=== PATIENT | female | born 1945 | race Caucasian/White ===

== ENCOUNTER 2022-03-30 15:12 | Outpatient (RCR) | payer MEDICARE, OTHER, SELFPAY | END 2022-03-31 23:59 | disposition home or self-care (01) | LOC: HO.PHPA 15:12 | PROVIDERS: Visit Provider Psychiatry & Neurology Psychiatry | DX: F41.9 Anxiety disorder, unspecified (principal) ==

== ENCOUNTER 2022-03-31 11:40 | Inpatient (IN) | payer MEDICARE, OTHER, SELFPAY ==
--- NOTE | 2022-03-31 12:05 | ED.PSYCH ---
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 Detect) Urine Fentanyl Screen Not Detected (Not Detect) Ur Barbiturates Screen Not Detected (Not Detect) Ur Phencyclidine Scrn Not Detected (Not Detect) Ur Amphetamines Screen Not Detected (Not Detect) U Benzodiazepines Scrn Not Detected (Not Detect) Urine Cocaine Screen Not Detected (Not Detect) U Marijuana (THC) Screen Not Detected (Not Detect) Ethyl Alcohol mg/dL Influenza Type A (PCR) NEGATIVE (Negative) Influenza Type B (PCR) NEGATIVE (Negative) RSV RNA Qual (PCR) NEGATIVE (Negative) SARS-CoV-2 RNA (RT-PCR) NEGATIVE (Negative) 03/31/22 03/31/22 03/31/22 Range/Units 13:17 13:17 13:17 WBC 5.3 (4.8-10.8) X10*3/uL RBC 4.33 (4.20-5.50) X10*6/uL Hgb 12.7 (12.0-16.0) g/dl Hct 38.6 (37.0-47.0) % MCV 89.1 (80.0-98.0) fL MCH 29.3 (27.0-33.0) pg MCHC 32.9 (31.0-35.0) g/dl RDW 12.9 (11.0-16.0) % Plt Count 157 L (160-400) X10*3/uL MPV 9.8 (9.4-12.3) fL Immature Gran % (Auto) 0.2 (0.0-0.4) % Neut % (Auto) 77.2 H (45-73) % Lymph % (Auto) 14.4 L (20-40) % [place] % (Auto) 5.9 (2-11) % Eos % (Auto) 1.7 (0-4) % Baso % (Auto) 0.6 (0-2) % Lymph # (Auto) 0.8 L (1.2-4.9) X10*3/uL [place] # (Auto) 0.3 (0.1-1.2) X10*3/uL Eos # (Auto) 0.1 (0.0-0.4) X10*3/uL Baso # (Auto) 0.0 (0.0-0.2) X10*3/uL Abs Immat Gran (auto) 0.01 (0.00-0.03) X10*3/uL Absolute Neuts (auto) 4.1 (2.0-8.3) x10*3/uL Absolute Nucleated RBC 0.000 (0.0-0.012) X10*3/uL Nucleated RBC % (auto) 0.0 (0.0-0.2) /100WBC Sodium 140 (135-145) mmol/L Potassium 4.6 (3.3-5.1) mmol/L Chloride 104 (96-108) mmol/L Carbon Dioxide 30 H (22-29) mmol/L Anion Gap 11 L (12-20) BUN 17 H (9-16) mg/dL Creatinine 0.80 (0.5-1.4) mg/dL Estim Creat Clear Calc 54.5 Estimated GFR > 60 Random Glucose 101 (60-115) mg/dL Calcium 9.3 (8.4-10.2) mg/dL Magnesium 2.1 (1.6-2.6) mg/dL Total Bilirubin 0.6 (0.0-1.0) mg/dL AST 40 H (5-31) U/L ALT 18 (0-31) U/L Alkaline Phosphatase 70 (39-117) U/L Troponin I High Sens (<3.5-17.0) ng/L Total Protein 6.6 (6.5-8.0) g/dL Albumin 4.2 (3.5-5.0) g/dL Urine Color Urine Appearance Urine pH (5.0-9.0) Ur Specific [place] (1.005-1.025) Urine Protein (Neg-Trace) mg/dL Urine Glucose (UA) (Negative) mg/dL Urine Ketones (Negative) mg/dL Urine Blood (Negative) Urine Nitrite (Negative) Ur Leukocyte Esterase (Negative) Urine Opiates Screen (Not Detect) Urine Fentanyl Screen (Not Detect) Ur Barbiturates Screen (Not Detect) Ur Phencyclidine Scrn (Not Detect) Ur Amphetamines Screen (Not Detect) U Benzodiazepines Scrn (Not Detect) Urine Cocaine Screen (Not Detect) U Marijuana (THC) Screen (Not Detect) Ethyl Alcohol < 10 mg/dL Influenza Type A (PCR) (Negative) Influenza Type B (PCR) (Negative) RSV RNA Qual (PCR) (Negative) SARS-CoV-2 RNA (RT-PCR) (Negative) 03/31/22 03/31/22 Range/Units 13:17 18:02 WBC (4.8-10.8) X10*3/uL RBC (4.20-5.50) X10*6/uL Hgb (12.0-16.0) g/dl Hct (37.0-47.0) % MCV (80.0-98.0) fL MCH (27.0-33.0) pg MCHC (31.0-35.0) g/dl RDW (11.0-16.0) % Plt Count (160-400) X10*3/uL MPV (9.4-12.3) fL Immature Gran % (Auto) (0.0-0.4) % Neut % (Auto) (45-73) % Lymph % (Auto) (20-40) % [place] % (Auto) (2-11) % Eos % (Auto) (0-4) % Baso % (Auto) (0-2) % Lymph # (Auto) (1.2-4.9) X10*3/uL [place] # (Auto) (0.1-1.2) X10*3/uL Eos # (Auto) (0.0-0.4) X10*3/uL Baso # (Auto) (0.0-0.2) X10*3/uL Abs Immat Gran (auto) (0.00-0.03) X10*3/uL Absolute Neuts (auto) (2.0-8.3) x10*3/uL Absolute Nucleated RBC (0.0-0.012) X10*3/uL Nucleated RBC % (auto) (0.0-0.2) /100WBC Sodium (135-145) mmol/L Potassium (3.3-5.1) mmol/L Chloride (96-108) mmol/L Carbon Dioxide (22-29) mmol/L Anion Gap (12-20) BUN (9-16) mg/dL Creatinine (0.5-1.4) mg/dL Estim Creat Clear Calc Estimated GFR Random Glucose (60-115) mg/dL Calcium (8.4-10.2) mg/dL Magnesium (1.6-2.6) mg/dL Total Bilirubin (0.0-1.0) mg/dL AST (5-31) U/L ALT (0-31) U/L Alkaline Phosphatase (39-117) U/L Troponin I High Sens 6.5 6.0 (<3.5-17.0) ng/L Total Protein (6.5-8.0) g/dL Albumin (3.5-5.0) g/dL Urine Color Urine Appearance Urine pH (5.0-9.0) Ur Specific [place] (1.005-1.025) Urine Protein (Neg-Trace) mg/dL Urine Glucose (UA) (Negative) mg/dL Urine Ketones (Negative) mg/dL Urine Blood (Negative) Urine Nitrite (Negative) Ur Leukocyte Esterase (Negative) Urine Opiates Screen (Not Detect) Urine Fentanyl Screen (Not Detect) Ur Barbiturates Screen (Not Detect) Ur Phencyclidine Scrn (Not Detect) Ur Amphetamines Screen (Not Detect) U Benzodiazepines Scrn (Not Detect) Urine Cocaine Screen (Not Detect) U Marijuana (THC) Screen (Not Detect) Ethyl Alcohol mg/dL Influenza Type A (PCR) (Negative) Influenza Type B (PCR) (Negative) RSV RNA Qual (PCR) (Negative) SARS-CoV-2 RNA (RT-PCR) (Negative) <Kvng Erickson DO - Last Filed: 04/01/22 07:41> Independent Interpretation I performed an independent interpretation of an: EKG <Amanda Richardson CNP - Last Filed: 03/31/22 19:50> Interpretation: Rate: 68 Rhythm:? Sinus rhythm [place]:? Normal Normal P waves.? Normal NATASHA.?? Normal QRS complex.?? ST T wave :??No ST elevation, ST depression. T-wave inversions in anterior lateral leads, most prominent in lead V3 and V4 without prior EKG available for review qTC: 450 prior studies:? None available for review The study has been interpreted contemporaneously by me. <Amanda Richardson CNP - Last Filed: 03/31/22 19:50> Discharge Plan Discharge Clinical Impression: Suicidal ideation, Depression <JAKY Linares - Last Filed: 03/31/22 12:13> Patient Disposition: Still a Patient <JAKY Linares Last Filed: 03/31/22 12:13> Prescriptions: No Action losartan 50 mg tablet 1 tab PO BID famotidine 40 mg tablet 1 tab PO BID clonazepam 0.5 mg tablet 1 tab PO DAILY PRN (Reason: Anxiety) sertraline 100 mg tablet 1 tab PO DAILY amlodipine 5 mg tablet 1 tab PO DAILY pravastatin 20 mg tablet 1 tab PO DAILY lorazepam 1 mg tablet 1 tab PO BID PRN (Reason: anxiety) hydroxyzine HCl 10 mg tablet 1 tab PO Q8H PRN (Reason: anxiety) oxycodone 10 mg tablet 1 tab PO Q8H PRN (Reason: pain) <JAKY Linares Last Filed: 03/31/22 12:13> Interventions: Early [place]-Suicide Risk Severity Scale Last Done: 04/01/22 04:49 <JAKY Linares Last Filed: 03/31/22 12:13> ED Observation ED Observation Admit Reason for Observation: Behavioral <Kvng Erickson DO - Last Filed: 04/01/22 07:41> Comment: Patient here for prolonged visit pending placement. patient with complaints of waking up at 430. Asking for higher doses of pain medications states she has no pain now but wants a higher dose for when or if she were to wake up. I did explain that didn't seem like a good idea that I could try to give her something to help her sleep but escalating up her pain medications didn't seem like a good idea. NO events overnight vitals are all normal. <Kvng Erickson DO - Last Filed: 04/01/22 07:41> ED Observation Progress Notes 1: Progress Note: 04/01/22 - 07:39 Kvng Erickson DO <Kvng Erickson DO - Last Filed: 04/01/22 07:41>
--- NOTE | 2022-03-31 12:08 | ECG_ITS ---
Test Reason : MED CLEARANCE Blood Pressure : / mmHG Vent. Rate : 068 BPM Atrial Rate : 068 BPM P-R Int : 184 ms QRS Dur : 098 ms QT Int : 424 ms P-R-T Axes : 048 001 148 degrees QTc Int : 450 ms Sinus rhythm with Premature supraventricular complexes Left ventricular hypertrophy with repolarization abnormality ( R in aVL , Yao product ) Abnormal ECG No previous ECGs available Referred By: Megan Giron Electronically Signed By:ALBANIA THOMAS
[2022-03-31 12:11] VITALS: BP 160/104; PULSE 92; RESP 18; TEMP 36.8; O2SAT 99; BMI 24.7
[2022-03-31 12:51] VITALS: RESP 18
[2022-03-31 13:15] LABS: Appearance Urine Clear; Color Urine Yellow; Glucose Urine UA Negative (Negative); Leukocyte Esterase Urine Negative (Negative); Nitrite Urine Negative (Negative); Specific Gravity - Urine 1.015 (1.005-1.025); Urine Blood Negative (Negative); Urine Ketones Negative (Negative); Urine Protein Negative (Neg-Trace)
[2022-03-31 13:40] LABS: Amphetamine Screen Urine Not Detected (Not Detect); Barbiturates, Urine Not Detected (Not Detect); Benzodiazepines Screen Urine Not Detected (Not Detect); Cannabinoid Screen Urine Not Detected (Not Detect); Cocaine Screen Urine Not Detected (Not Detect); Fentanyl, urine Not Detected (Not Detect); Opiate Screen Urine POSITIVE (Not Detect); Phencyclidine Screen Urine Not Detected (Not Detect)
[2022-03-31 13:44] LABS: MANUAL DIFF FLAG NO
[2022-03-31 13:46] LABS: Basophils Percent Auto 0.6 % (0-2); Eosinophils Absolute Auto 0.1 X10*3/uL (0.0-0.4); Eosinophils Percent Auto 1.7 % (0-4); Hematocrit 38.6 % (37.0-47.0); Hemoglobin 12.7 g/dl (12.0-16.0); Imm Gran Abs Auto 0.01 X10*3/uL (0.00-0.03); Imm Gran Pct Auto 0.2 % (0.0-0.4); Lymphocytes Absolute Auto 0.8 X10*3/uL (1.2-4.9); Lymphocytes Percent Auto 14.4 % (20-40); Mean Corpuscular HGB Conc 32.9 g/dl (31.0-35.0); Mean Corpuscular Hemoglobin 29.3 pg (27.0-33.0); Mean Corpuscular Volume 89.1 fL (80.0-98.0); Mean Platelet Volume 9.8 fL (9.4-12.3); Monocytes Absolute Auto 0.3 X10*3/uL (0.1-1.2); Monocytes Percent Auto 5.9 % (2-11); Neutrophils Absolute Auto 4.1 x10*3/uL (2.0-8.3); Neutrophils Percent Auto 77.2 % (45-73); Platelet Count 157 X10*3/uL (160-400); Red Blood Count 4.33 X10*6/uL (4.20-5.50); Red Cell Distribution Width 12.9 % (11.0-16.0); White Blood Count 5.3 X10*3/uL (4.8-10.8)
[2022-03-31 13:49] LABS: Influenza A PCR NEGATIVE (Negative); Influenza B PCR NEGATIVE (Negative); Resp Syncy Virus RNA Qual PCR NEGATIVE (Negative); SARS COV2 PCR INHOUSE NEGATIVE (Negative)
[2022-03-31 14:03] LABS: Alanine Aminotransferase 18 U/L (0-31); Albumin Level 4.2 g/dL (3.5-5.0); Alkaline Phosphatase 70 U/L (39-117); Anion Gap 11 (12-20); Aspartate Amino Transferase 40 U/L (5-31); Bilirubin Total 0.6 mg/dL (0.0-1.0); Blood Urea Nitrogen 17 mg/dL (9-16); Calcium 9.3 mg/dL (8.4-10.2); Carbon Dioxide 30 mmol/L (22-29); Chloride 104 mmol/L (96-108); Creatinine Clr Calc Pharmacy 54.5; Estimated Glomerular Filt Rate > 60; Glucose Random 101 mg/dL (60-115); Magnesium 2.1 mg/dL (1.6-2.6); Potassium 4.6 mmol/L (3.3-5.1); Sodium 140 mmol/L (135-145); Total Protein 6.6 g/dL (6.5-8.0)
[2022-03-31 14:05] LABS: Ethanol < 10 mg/dL
[2022-03-31 15:12] VITALS: BP 138/78; PULSE 78; TEMP 37.1; O2SAT 97
[2022-03-31 16:21] LABS: Troponin-I High Sensitivity 6.5 ng/L (<3.5-17.0)
[2022-03-31] MEDS: oxyCODONE HCl Immed Release 5 MG TABLET 10 MG PO (19:47)
[2022-03-31] MEDS: Losartan Potassium 50 MG TABLET PO (20:05)
[2022-03-31] MEDS: Famotidine 20 MG TABLET 40 MG PO (20:05)
[2022-03-31 20:06] VITALS: BP 131/75; PULSE 56
[2022-03-31] MEDS: LORazepam 1 MG TABLET PO (22:48)
[2022-03-31 23:26] VITALS: BP 130/72; PULSE 54; RESP 16; TEMP 36.8; O2SAT 97
[2022-04-01] MEDS: oxyCODONE HCl Immed Release 5 MG TABLET 10 MG PO ×3 (04:34→21:16)
--- NOTE | 2022-04-01 04:45 | PC.NURSE ---
Patient slept through the night, up once for bathroom use and reported chronic lower back pain 10/24, PRN Oxycodone 10 mg po was administered x 2 with + effect, PRN Ativan 1 mg administered at 2248 with + effect, behavior appropriate and non concerning, coherent thought process, medication compliant, VSS, disposition per care team is section 12 inpatient bed search, will continue to monitor.
[2022-04-01 07:45] VITALS: BP 116/71; PULSE 66; RESP 16; TEMP 37.1; O2SAT 94
[2022-04-01] MEDS: amLODIPine Besylate 5 MG TABLET PO (08:46)
[2022-04-01] MEDS: Sertraline HCL 100 MG TABLET PO (08:46)
[2022-04-01] MEDS: Losartan Potassium 50 MG TABLET PO ×2 (08:47→19:11)
[2022-04-01] MEDS: Famotidine 20 MG TABLET 40 MG PO ×2 (08:47→19:11)
[2022-04-01] MEDS: LORazepam 1 MG TABLET PO ×2 (08:48→22:15)
[2022-04-01] MEDS: Pravastatin Sodium 20 MG TABLET PO (08:53)
--- NOTE | 2022-04-01 17:41 | PC.ADMIT ---
Addendum entered by Tan Perez RN 04/01/22 18:05: Pt EKG is sinus rhythm with premature supraventicular complex left ventricular hypertrophy with Repolarization? abnormality Original Note: Pt is a 76 year old female who presents to from [facility] at approximately 1600 on a cv status. Pt is covid - Utox + for opiates. per chart review, pt was assessed by the CARE Team after making an SI statement during her PHP program today. Per pt and pt's daughter reports, pt has becoming increasingly hopeless and struggling with anxiety and sleep. Pt is help seeking and wants to get help, but states I don't know how someone cane help me . Pt is at risk for further decompensation as daughter reports the symptoms have been worsening recently including isolating at home. During admit, Pt reported that she has no pain, anxiety is a 3-4/10 and her depression is a 4/10. Pt reported some hearing loss in her RT ear. Pt has a diagnoses of unspecified depressive disorder, and generalized anxiety disorder. Pt reports truma hx. Provider notified and called for admission orders. Start treatment plan and monitor for safety.
[2022-04-01 19:15] VITALS: BP 110/64; PULSE 62; TEMP 36.9
[2022-04-02] MEDS: oxyCODONE HCl Immed Release 5 MG TABLET 10 MG PO ×2 (08:03→18:18)
[2022-04-02] MEDS: amLODIPine Besylate 5 MG TABLET PO (08:04)
[2022-04-02] MEDS: Losartan Potassium 50 MG TABLET PO ×2 (08:04→20:05)
[2022-04-02] MEDS: Pravastatin Sodium 20 MG TABLET PO (08:04)
[2022-04-02] MEDS: Famotidine 20 MG TABLET 40 MG PO ×2 (08:04→20:05)
[2022-04-02] MEDS: Sertraline HCL 100 MG TABLET PO (08:04)
[2022-04-02 09:15] LABS: Estimated Average Glucose 117 mg/dL; Hemoglobin A1c % 5.7 %
[2022-04-02 09:40] LABS: Cholesterol 173 mg/dL; Free T4 (Free Thyroxine) 0.89 ng/dL (0.71-1.85); HDL Cholesterol 83 mg/dL; LDL Cholesterol Calculated 76 mg/dl; Magnesium 2.2 mg/dL (1.6-2.6); Thyroid Stimulating Hormone 2.07 uIU/mL (0.32-4.0); Triglycerides 71 mg/dL
[2022-04-02 09:52] LABS: Folate 13.2 ng/mL (> or = 4.0); Vitamin B12 290 pg/mL (200-900)
[2022-04-02 09:53] VITALS: BP 138/82; PULSE 83; RESP 16; TEMP 36.6; O2SAT 95
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
[2022-04-02] MEDS: Lactase TABLET 1 TAB PO ×3 (12:48→17:45)
[2022-04-02 20:03] VITALS: BP 128/65; PULSE 63; RESP 16; TEMP 36.8; O2SAT 96
[2022-04-02] MEDS: Mirtazapine 7.5 MG TABLET PO (20:05)
[2022-04-03] MEDS: oxyCODONE HCl Immed Release 5 MG TABLET 10 MG PO ×3 (02:02→14:20)
[2022-04-03 06:00] VITALS: BP 130/73; PULSE 70; RESP 18; TEMP 36.6; O2SAT 96
[2022-04-03] MEDS: Lactase TABLET 1 TAB PO ×3 (09:15→17:55)
[2022-04-03] MEDS: estradioL 0.5 MG TABLET PO (09:15)
[2022-04-03] MEDS: Losartan Potassium 50 MG TABLET PO (09:15)
[2022-04-03] MEDS: Famotidine 20 MG TABLET 40 MG PO ×2 (09:15→21:18)
[2022-04-03] MEDS: Pravastatin Sodium 20 MG TABLET PO (09:16)
[2022-04-03] MEDS: amLODIPine Besylate 5 MG TABLET PO (09:16)
[2022-04-03] MEDS: Sertraline HCL 100 MG TABLET PO (09:16)
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
[2022-04-03] MEDS: Acetaminophen 325 MG TABLET 650 MG PO (16:31)
[2022-04-03 19:20] VITALS: BP 129/58; PULSE 58; RESP 16; TEMP 36.5; O2SAT 96
[2022-04-03 21:07] VITALS: BP 91/58
[2022-04-03 21:20] VITALS: BP 86/56
[2022-04-03] MEDS: Mirtazapine 7.5 MG TABLET PO (21:25)
[2022-04-04 08:13] VITALS: BP 122/76; PULSE 106; RESP 16; TEMP 36.3; O2SAT 96
[2022-04-04] MEDS: estradioL 0.5 MG TABLET PO (08:45)
[2022-04-04] MEDS: Lactase TABLET 1 TAB PO ×3 (08:45→17:36)
[2022-04-04] MEDS: oxyCODONE HCl Immed Release 5 MG TABLET 10 MG PO ×3 (08:45→22:13)
[2022-04-04] MEDS: Pravastatin Sodium 20 MG TABLET PO (08:46)
[2022-04-04] MEDS: amLODIPine Besylate 5 MG TABLET PO (08:46)
[2022-04-04] MEDS: Sertraline HCL 100 MG TABLET PO (08:46)
[2022-04-04] MEDS: Famotidine 20 MG TABLET 40 MG PO ×2 (08:46→20:20)
[2022-04-04] MEDS: Losartan Potassium 50 MG TABLET PO (08:46)
[2022-04-04 16:15] VITALS: BP 88/58; PULSE 66; RESP 18
[2022-04-04 20:13] VITALS: BP 110/65; PULSE 60
[2022-04-04] MEDS: Mirtazapine 7.5 MG TABLET PO (20:20)
[2022-04-04] MEDS: OLANZapine 2.5 MG TABLET PO (20:20)
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
[2022-04-04] MEDS: Acetaminophen 325 MG TABLET 650 MG PO (21:10)
[2022-04-05 08:20] VITALS: BP 158/81; PULSE 73; RESP 16; TEMP 36.7; O2SAT 95
[2022-04-05] MEDS: Famotidine 20 MG TABLET 40 MG PO ×2 (08:40→20:21)
[2022-04-05] MEDS: Lactase TABLET 1 TAB PO ×3 (08:40→16:07)
[2022-04-05] MEDS: oxyCODONE HCl Immed Release 5 MG TABLET 10 MG PO ×3 (08:40→22:02)
[2022-04-05] MEDS: Pravastatin Sodium 20 MG TABLET PO (08:41)
[2022-04-05] MEDS: Losartan Potassium 50 MG TABLET PO ×2 (08:41→20:21)
[2022-04-05] MEDS: estradioL 0.5 MG TABLET PO (08:41)
[2022-04-05] MEDS: amLODIPine Besylate 5 MG TABLET PO (08:41)
[2022-04-05] MEDS: Sertraline HCL 100 MG TABLET PO (08:41)
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
[2022-04-05] MEDS: Sertraline HCL 25 MG TABLET PO (14:49)
[2022-04-05 18:00] VITALS: BP 94/53; PULSE 59; RESP 16; TEMP 36.7; O2SAT 95
[2022-04-05] MEDS: OLANZapine 2.5 MG TABLET PO (20:21)
[2022-04-06] MEDS: Pravastatin Sodium 20 MG TABLET PO (08:17)
[2022-04-06] MEDS: oxyCODONE HCl Immed Release 5 MG TABLET 10 MG PO ×3 (08:18→22:39)
[2022-04-06] MEDS: Famotidine 20 MG TABLET 40 MG PO ×2 (08:18→21:16)
[2022-04-06] MEDS: amLODIPine Besylate 5 MG TABLET PO (08:18)
[2022-04-06] MEDS: Sertraline HCL 25 MG TABLET 125 MG PO (08:18)
[2022-04-06] MEDS: Losartan Potassium 50 MG TABLET PO ×2 (08:19→21:16)
[2022-04-06] MEDS: Lactase TABLET 1 TAB PO ×3 (08:19→17:37)
[2022-04-06] MEDS: estradioL 0.5 MG TABLET PO (08:19)
[2022-04-06 08:24] VITALS: BP 114/71; PULSE 60; RESP 16; TEMP 36; O2SAT 97
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
[2022-04-06 16:33] VITALS: BP 128/65; PULSE 59; RESP 18; TEMP 36.7; O2SAT 98
[2022-04-06] MEDS: OLANZapine 2.5 MG TABLET PO (21:16)
[2022-04-06 21:18] VITALS: BP 153/81; PULSE 73
[2022-04-07] MEDS: Mirtazapine 7.5 MG TABLET PO (00:47)
[2022-04-07 06:00] VITALS: BP 111/79; PULSE 77; RESP 14; TEMP 36.8; O2SAT 96
[2022-04-07] MEDS: amLODIPine Besylate 5 MG TABLET PO (08:26)
[2022-04-07] MEDS: Famotidine 20 MG TABLET 40 MG PO (08:26)
[2022-04-07] MEDS: Losartan Potassium 50 MG TABLET PO (08:27)
[2022-04-07] MEDS: estradioL 0.5 MG TABLET PO (08:27)
[2022-04-07] MEDS: Lactase TABLET 1 TAB PO ×2 (08:27→12:26)
[2022-04-07] MEDS: Sertraline HCL 25 MG TABLET 125 MG PO (08:28)
[2022-04-07] MEDS: oxyCODONE HCl Immed Release 5 MG TABLET 10 MG PO (08:34)
[2022-04-07] MEDS: Pravastatin Sodium 20 MG TABLET PO (08:48)
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
[2022-04-07] MEDS: Acetaminophen 325 MG TABLET 650 MG PO (14:22)
== END 2022-04-07 14:30 | disposition home or self-care (01) | DRG 885 ==
LOC: HO.ED 04-01 13:19 → HO.PM5 04-01 13:45
PROVIDERS: Clinical Nurse Specialist Psychiatric/Mental Health, Adult; Nurse Practitioner Family; Physician Assistant Medical; Admitting Provider Psychiatry & Neurology Psychiatry; Emergency Provider Student in an Organized Health Care Education/Training Program; Visit Provider Psychiatry & Neurology Psychiatry
DX: F33.1 Major depressive disorder, recurrent, moderate (principal); R45.851 Suicidal ideations; F43.10 Post-traumatic stress disorder, unspecified; Z20.822 Contact with and (suspected) exposure to COVID-19; Z79.899 Other long term (current) drug therapy
CPT/HCPCS: 0241U; 36415; 80053; 80061; 80307; 81003; 82077; 82607; 82746; 83036; 83735; 84439; 84443; 84484; 85025; 93005; 99285